=== PATIENT | female | born 1990 | race Caucasian/White ===

== ENCOUNTER 2023-09-25 10:44 | Emergency (ER) | payer OTHER ==
[~2023-09-25] VITALS: Ht 160 cm; Wt 133.8 kg
[2023-09-25] MEDS ORDERED: OMEP40CA4 PO (11:06)
[2023-09-25] MEDS ORDERED: VALS40TA9 PO (11:06)
[2023-09-25] MEDS ORDERED: IRON325T2 PO (11:08)
[2023-09-25 12:54] LABS: RSV AMPLIFICATION NEGATIVE (NEGATIVE)
[2023-09-25 13:39] VITALS: BP 155/97; TEMP 98.5; O2SAT 100
== END 2023-09-25 13:54 | disposition home or self-care (01) ==
LOC: M ED 10:44
DX: J06.9 Acute upper respiratory infection, unspecified (principal); I10 Essential (primary) hypertension; K21.9 Gastro-esophageal reflux disease without esophagitis; Z88.1 Allergy status to other antibiotic agents; Z79.899 Other long term (current) drug therapy

== ENCOUNTER 2024-03-09 07:13 | Emergency (ER) | payer OTHER ==
[~2024-03-09] VITALS: Ht 162.6 cm; Wt 139.2 kg
[~2024-03-09 07:13] MED LIST: IRON325T2 PO; OMEP40CA4 PO; VALS40TA9 PO
[2024-03-09 08:02] LABS: BASO # 0.1 10^3/uL (0.0-0.2); BASO % 0.8 % (0.0-1.0); EOS # 0.6 10^3/uL (0.0-0.5); EOS % 5.7 % (0.0-3.0); HEMATOCRIT 40.7 % (36.0-47.0); HEMOGLOBIN 13.4 g/dl (12.0-15.5); LYMPH # 2.8 10^3/uL (1.5-5.0); MEAN CORPUSCULAR HEMOGLOBIN 25.3 pg (27.0-33.0); MEAN CORPUSCULAR HGB CONC 32.9 g/dl (32.0-36.5); MEAN CORPUSCULAR VOLUME 76.9 fl (80.0-96.0); MONO # 0.7 10^3/uL (0.0-0.8); MONO % 6.1 % (2.0-8.0); NEUTROPHILS # 6.9 10^3/uL (1.5-8.5); NEUTROPHILS % 61.7 % (36.0-66.0); PLATELET COUNT, AUTOMATED 239 10^3/uL (150-450); RED BLOOD COUNT 5.29 10^6/uL (4.00-5.40); WHITE BLOOD COUNT 11.2 10^3/uL (4.0-10.0)
[2024-03-09 08:15] LABS: INR 1.08; PROTHROMBIN TIME 13.7 SECONDS (12.5-14.5)
[2024-03-09 08:27] LABS: ALBUMIN 3.8 G/DL (3.2-5.2); ALKALINE PHOSPHATASE 89 U/L (46-116); ALT/SGPT 23 U/L (7.0-40); AST/SGOT < 8 U/L (<34); BILIRUBIN,DIRECT 0.2 MG/DL (<0.4); BILIRUBIN,TOTAL 0.4 MG/DL (0.3-1.2); BLOOD UREA NITROGEN 10 MG/DL (9-23); CALCIUM LEVEL 9.2 MG/DL (8.5-10.1); CARBON DIOXIDE LEVEL 25 MMOL/L (20-31); CHLORIDE LEVEL 107 MMOL/L (98-107); CREATININE FOR GFR 0.64 MG/DL (0.55-1.30); GLOMERULAR FILTRATION RATE > 60.0 (>60); GLUCOSE, FASTING 107 MG/DL (60-100); POTASSIUM SERUM 3.9 MMOL/L (3.5-5.1); SODIUM LEVEL 138 MMOL/L (136-145); TOTAL PROTEIN 6.4 G/DL (5.7-8.2)
[2024-03-09] MEDS ORDERED: FEXO-112 (09:46)
[2024-03-09] MEDS ORDERED: ISOVUE-370 76% 100ML VIAL As Ordered ONE (10:37)
[2024-03-09] MEDS: ONDANSETRON 4MG 2ML VIAL IV ONE (10:45)
[2024-03-09] MEDS: NS 1,000 ML IV ONE (10:45)
[2024-03-09 11:33] VITALS: BP 135/76; TEMP 97.2; O2SAT 100
[2024-03-09] MEDS ORDERED: ONDA-282 PO (12:52)
== END 2024-03-09 13:24 | disposition home or self-care (01) ==
LOC: M ED 07:13
DX: A09 Infectious gastroenteritis and colitis, unspecified (principal); R11.2 Nausea with vomiting, unspecified; R16.1 Splenomegaly, not elsewhere classified; Z88.1 Allergy status to other antibiotic agents; Z79.899 Other long term (current) drug therapy
CPT/HCPCS: 74177; 80048; 80076; 85025; 85610; 85730; 86850; 86900; 86901; 87507; 96374; 99284; J2405; Q9967

== ENCOUNTER → 2024-03-26 | Outpatient (REF) | payer OTHER ==
[~2024-03-26] MED LIST changes: +ACET32TAB PO; +ALBU8.5H; +AMOX500T PO; +AMOX875T2 PO; +CVS1CAP2 PO; +ESTR1TAB; +FERR325T15 PO; +FEXO-112; +IBUP200C25 PO; +IBUP200C28 PO; +NEOM1SOL19 OTIC; +ONDA-282 PO; +PRED20TA PO; +VALS1TAB66; +VITA100093 PO
[2024-03-26 18:39] LABS: PERCENT SATURATION 14.2 % (13.2-45.0)
[2024-03-26 18:41] LABS: FERRITIN 47.6 NG/ML (7.3-270.7)
== END ==
LOC: MERGE 13:34 → M SFHCADAM 13:34
PROVIDERS: ATTEND Physician Assistant Medical
DX: R14.0 Abdominal distension (gaseous) (principal); E61.1 Iron deficiency; E55.9 Vitamin D deficiency, unspecified

== ENCOUNTER → 2024-04-04 | Outpatient (CLI) | payer OTHER | LOC: M WHC 09:40 | PROVIDERS: ATTEND Physician Assistant Medical | DX: R22.1 Localized swelling, mass and lump, neck (principal) ==

== ENCOUNTER 2024-05-16 18:03 | Emergency (ER) | payer OTHER ==
[~2024-05-16] VITALS: Ht 160 cm; Wt 137.0 kg
[2024-05-16 20:14] VITALS: TEMP 97.6
[2024-05-16 23:35] LABS: BASO # 0.1 10^3/uL (0.0-0.2); BASO % 0.6 % (0.0-1.0); EOS # 0.4 10^3/uL (0.0-0.5); EOS % 3.5 % (0.0-3.0); HEMATOCRIT 40.9 % (36.0-47.0); HEMOGLOBIN 13.2 g/dl (12.0-15.5); LYMPH # 3.7 10^3/uL (1.5-5.0); LYMPH % 31.9 % (24.0-44.0); MEAN CORPUSCULAR HEMOGLOBIN 25.1 pg (27.0-33.0); MEAN CORPUSCULAR HGB CONC 32.3 g/dl (32.0-36.5); MEAN CORPUSCULAR VOLUME 77.8 fl (80.0-96.0); MONO # 0.7 10^3/uL (0.0-0.8); MONO % 5.8 % (2.0-8.0); NEUTROPHILS # 6.6 10^3/uL (1.5-8.5); NEUTROPHILS % 57.4 % (36.0-66.0); PLATELET COUNT, AUTOMATED 248 10^3/uL (150-450); RED BLOOD COUNT 5.26 10^6/uL (4.00-5.40); WHITE BLOOD COUNT 11.4 10^3/uL (4.0-10.0)
[2024-05-16 23:40] LABS: APPEARANCE, URINE HAZY (CLEAR); BACTERIA, URINE AUTO NEGATIVE (NEGATIVE); BILIRUBIN, URINE AUTO NEGATIVE (NEGATIVE); BLOOD, URINE BLOOD NEGATIVE (NEGATIVE); COLOR, URINE YELLOW (YELLOW); GLUCOSE, URINE (UA) AUTO NEGATIVE (NEGATIVE); KETONE, URINE AUTO NEGATIVE (NEGATIVE); LEUKOCYTE ESTERASE, URINE AUTO NEGATIVE (NEGATIVE); MUCUS, URINE SMALL (NEGATIVE); NITRITE, URINE AUTO NEGATIVE (NEGATIVE); PROTEIN, URINE AUTO NEGATIVE (NEGATIVE); RBC, URINE AUTO 0 /HPF (0-3); SPECIFIC GRAVITY URINE AUTO 1.024 (1.002-1.035); SQUAMOUS EPITHELIAL CELL UR AU 3 /HPF (0-6); UROBILINOGEN, URINE AUTO 0.2 mg/dL (0.0-2.0); WBC, URINE AUTO 0 /HPF (0-3)
[2024-05-17 00:08] LABS: BLOOD UREA NITROGEN 13 MG/DL (9-23); CALCIUM LEVEL 9.8 MG/DL (8.5-10.1); CARBON DIOXIDE LEVEL 27 MMOL/L (20-31); CHLORIDE LEVEL 109 MMOL/L (98-107); CK-MB VALUE MASS < 1.0 NG/ML (<3.6); CPK CREATINE PHOSPHOKINASE 35 U/L (34-145); CREATININE FOR GFR 0.67 MG/DL (0.55-1.30); GLOMERULAR FILTRATION RATE > 60.0 (>60); GLUCOSE, FASTING 93 MG/DL (60-100); MB/CK RELATIVE INDEX 2.85 (< OR =4); POTASSIUM SERUM 4.3 MMOL/L (3.5-5.1); SODIUM LEVEL 141 MMOL/L (136-145)
[2024-05-17] MEDS: diphenhydrAMINE 50MG/ML VIAL IV ONE (00:22)
[2024-05-17] MEDS: KETOROLAC 30 MG/ML 1ML VIAL IV ONE (00:23)
[2024-05-17] MEDS: METOCLOPRAMIDE INJ 10MG/2ML VIAL IV ONE (00:23)
[2024-05-17 01:36] LABS: CPK CREATINE PHOSPHOKINASE 35 U/L (34-145)
[2024-05-17 02:00] VITALS: BP 133/63; O2SAT 97
[2024-05-17 02:11] LABS: CK-MB VALUE MASS < 1.0 NG/ML (<3.6); MB/CK RELATIVE INDEX 2.85 (< OR =4)
== END 2024-05-17 02:22 | disposition home or self-care (01) ==
LOC: M ED 18:03
DX: R51.9 Headache, unspecified (principal); I10 Essential (primary) hypertension; Z88.1 Allergy status to other antibiotic agents; Z88.8 Allergy status to other drugs, medicaments and biological substances; Z91.09 Other allergy status, other than to drugs and biological substances; Z79.51 Long term (current) use of inhaled steroids; Z79.2 Long term (current) use of antibiotics; Z79.1 Long term (current) use of non-steroidal anti-inflammatories (NSAID); Z79.52 Long term (current) use of systemic steroids; Z79.899 Other long term (current) drug therapy
CPT/HCPCS: 70450; 71045; 80048; 81001; 82550; 82553; 84484; 85025; 93005; 93041; 94760; 96374; 96375; 99284; J1200; J1885; J2765